=== PATIENT | male | born 1965 | race Caucasian/White ===

== ENCOUNTER → 2016-07-15 | Outpatient (CLI) | payer BC ==
[2016-07-15 15:45] LABS: Rheumatoid Factor, Qnt <9 IU/mL (<12)
[2016-07-15 20:25] LABS: Treponemal Ab Non-Reactive (Non-Reactive)
[2016-07-15 20:39] LABS: ANA w/Reflex to Titer NEGATIVE (NEGATIVE)
== END | disposition home or self-care (01) ==
LOC: LABWHC1 14:50
PROVIDERS: ATTEND Otolaryngology
DX: H91.20 Sudden idiopathic hearing loss, unspecified ear (principal); H93.3X3 Disorders of bilateral acoustic nerves
CPT/HCPCS: 36415; 84443; 85652; 86038; 86431; 86780

== ENCOUNTER → 2017-01-30 | Outpatient (CLI) | payer BC ==
--- NOTE | 2017-01-30 22:15 | XR ---
EXAMINATION TYPE: XR chest 2V DATE OF EXAM: 01/30/2017 COMPARISON: NONE HISTORY: Cough and shortness of breath for 2 weeks. TECHNIQUE: Frontal and lateral views of the chest are obtained. FINDINGS: There is no focal air space opacity, pleural effusion, or pneumothorax seen. The cardiac silhouette size is within normal limits. Multilevel spurring in the thoracic spine is present. There is additional degenerative change at bilateral acromioclavicular joints. IMPRESSION: No suspicious acute pulmonary process.
== END | disposition home or self-care (01) ==
LOC: RADXRMAIN 17:34
PROVIDERS: ATTEND Family Medicine
DX: J20.9 Acute bronchitis, unspecified (principal)
CPT/HCPCS: 71020